=== PATIENT | female | born 1965 | race Caucasian/White ===

== ENCOUNTER 2018-04-02 14:02 | Outpatient (CLI) ==
[2014-11-24 11:05] VITALS: BMI 18.8
--- NOTE | 2018-04-02 15:17 | DI ---
EXAM: CHEST FRONTAL AND LATERAL VIEWS HISTORY: Chronic obstructive pulmonary disease. COMPARISON: 11/24/2014 FINDINGS: Heart size and mediastinal contour remain within normal limits. There is at least mild a therosclerotic disease. There is diffuse, chronic appearing interstitial accentuation. Lungs are hy perinflated and there is relative lucency of the lung zones consistent with pulmonary emphysema. No acute infiltrates are seen. No vascular congestion. There is no consolidation, visible pleural flui d or pneumothorax. Bones reveal no acute fracture. IMPRESSION: Chronic obstructive pulmonary disease is suspected. No acute cardiopulmonary process.
== END 2018-04-02 14:03 | disposition home or self-care (01) ==
LOC: RAD 14:02
PROVIDERS: ATTEND Physician Assistant
DX: J44.9 Chronic obstructive pulmonary disease, unspecified (principal)

== ENCOUNTER 2018-04-16 08:48 | Outpatient (CLI) ==
[2014-11-24 11:05] VITALS: BMI 18.8
== END 2018-04-16 08:49 | disposition home or self-care (01) ==
LOC: CAR 08:48
PROVIDERS: ATTEND Physician Assistant
DX: J44.9 Chronic obstructive pulmonary disease, unspecified (principal)

== ENCOUNTER 2018-09-02 10:55 | Emergency (ER) ==
[2018-09-02 11:00] VITALS: BP 125/77; TEMP 99.7; BMI 18.2
--- NOTE | 2018-09-02 12:04 | CT ---
EXAM: CT chest without contrast HISTORY: Blunt trauma right chest 1 week ago COMPARISON: None TECHNIQUE: CT chest performed without intravenous contrast. Coronal and sagittal reformatted images obtained. FINDINGS: Thyroid and thoracic inlet appear normal. Heart normal in size. No pericardial effusion. Aorta normal in caliber. Old. Esophagus. Mild atherosclerosis. Esophagus unremarkable. Evaluat ion for lymphadenopathy limited without contrast. No lymphadenopathy identified. Granulomatous calc ification. Patient status post cholecystectomy. No acute abnormalities of the bones. Central airwa y patent. Moderate centrilobular emphysema. Mild linear opacity right upper lobe, likely scarring. Mild right basilar consolidation with this region appearing somewhat nodular. IMPRESSION: 1. Mild right basilar consolidation could represent atelectasis and/or pneumonia. Small area of con tusion cannot be excluded in the setting of trauma. Region appears somewhat nodular and follow-up CT recommended 3 months for reevaluation. 2. Moderate centrilobular emphysema.
--- NOTE | 2018-09-02 12:19 | ED.PDOC ---
General ED Provider: Dr. CLAUDIA LUNDY Chief Complaint: Chest Wall Injury/Pain Stated Complaint: chest wall injury 1week ago Time Seen by Physician: 11:00 (NURSE PRESENT AT ALL TIMES ) Mode of Arrival: Walk-In Information Source: Patient Exam Limitations: No limitations Primary Care Provider: EDGAR CORONADO Nursing and Triage Documentation Reviewed and Agree: Yes Does patient meet sepsis criteria?: No System Inflammatory Response Syndrome: Not Applicable Sepsis Protocol: For patient's 13 years and over: Temp is 96.8 and below OR 101 and greater Pulse >90 BPM Resp >20/minute Acutely Altered Mental Status Are patient's symptoms suggestive of a new infection, such as: -Pneumonia -Skin, Soft Tissue -Endocarditis -UTI -Bone, Joint Infection -Implantable Device -Acute Abdominal Infection -Wound Infection -Meningitis -Blood Stream Catheter Infection -Unknown Trauma/Injury Complaint Exam - Trauma Complaint/Exam Location of Pain or Injury: Reports: Chest Onset/Duration: 7 days Symptoms Are: Still present Timing of Treatment: Immediate Initial Severity: Mild Current Severity: Mild Character: Reports: Aching Aggravating: Reports: Movement Alleviating: Reports: Rest Associated Signs and Symptoms: Denies: LOC, Confusion, Memory loss, Lethargy, Vomiting, Bleeding, Bruising, Swelling, Extremity disuse, Painful respiration, Hoarseness, Dysphagia, Hemoptysis, Significant blood loss Penetrating Injury Risk Factors: Reports: None Nexus Low Risk Criteria: No post-midline CS tender, No evidence of intoxicat., No Altered LOC, No focal neuro deficit, No distracting injuries Glascow Coma Scale (see protocol): 15 Skin Findings: Present: Normal findings Differential Diagnoses: Contusions, Sprain, Strain Review of Systems - Review Of Systems Constitutional: Reports: No symptoms Eyes: Reports: No symptoms Ears, Nose, Mouth, Throat: Reports: No symptoms Respiratory: Reports: No symptoms Cardiac: Reports: Chest pain (wall pain right sided ) GI: Reports: No symptoms : Reports: No symptoms Musculoskeletal: Reports: No symptoms Skin: Reports: No symptoms Neurological: Reports: No symptoms Endocrine: Reports: No symptoms Hematologic/Lymphatic: Reports: No symptoms All Other Systems: Reviewed and Negative Past Medical History - Past Medical History Previously Healthy: Yes Endocrine: Reports: None Cardiovascular: Reports: None Respiratory: Reports: COPD Hematological: Reports: None Gastrointestinal: Reports: None Genitourinary: Reports: None Neuro/Psych: Reports: None Musculoskeletal: Reports: None Cancer: Reports: None Last Menstrual Period: none - Surgical History General Surgical History: Reports: None - Family History Family History: Reports: None - Social History Smoking Status: Former smoker Hx Substance Use: No Alcohol Screening: None Physical Exam - Physical Exam Appearance: Well-appearing, No pain distress, Well-nourished Eyes: LEONOR, EOMI, Conjunctiva clear ENT: Ears normal, Nose normal, Oropharynx normal Respiratory: Airway patent, Breath sounds clear, Breath sounds equal, Respirations nonlabored Cardiovascular: RRR, Pulses normal, No rub, No murmur GI/: Soft, Nontender, No masses, Bowel sounds normal, No Organomegaly Musculoskeletal: Normal strength, ROM intact, No edema, No calf tenderness Skin: Warm, Dry, Normal color Neurological: Sensation intact, Motor intact, Reflexes intact, Cranial nerves intact, Alert, Oriented Psychiatric: Affect appropriate, Mood appropriate Interpretation - Radiology Interpretation Radiology Interpretation By: Radiologist Radiology Results: No acute changes (except for small area of contusion) Critical Care Note - Critical Care Note Total Time (mins): 0 Course - Course Orders, Labs, Meds: Orders Category Date Time Status CT CHEST W/O CONTRAST Stat RADS 09/02/18 11:12 Completed Vital Signs: Temp Pulse Resp BP Pulse Ox 09/02/18 10:55 99.7 F H 84 20 125/77 95 Departure - Departure Time of Disposition: 12:19 Disposition: HOME SELF-CARE Discharge Problem: Chest wall pain Chest wall contusion Qualifiers: Encounter type: sequela Laterality: right Qualified Code(s): S20.211S - Contusion of right front wall of thorax, sequela Instructions: Chest Wall Pain (ED) Condition: Good Pt referred to PMD for follow-up: Yes IPMP verified?: No Additional Instructions: Please call your Family Physician as soon as possible to schedule a follow-up appointment. THE RADIOLOGIST WANTS YOU TO HAVE A CAT SCAN OF THE CHEST IN 3 MOTHS MAKE SURE YOU DO. YOU DO NOT WANT OVERLOOK THIS ISSUE . Prescriptions: Hydrocodone/Acetaminophen [[place] 10-325 Tablet] 1 each PO Q8HR #10 tablet Allergies/Adverse Reactions: Allergies codeine Adverse Reaction (Verified 09/02/18 11:00) diazepam [From Valium] Adverse Reaction (Verified 09/02/18 11:00) hydrocodone Adverse Reaction (Verified 09/02/18 14:18) meperidine HCl [From Demerol] Adverse Reaction (Verified 09/02/18 11:00) morphine Adverse Reaction (Verified 09/02/18 11:00) oxycodone Adverse Reaction (Verified 09/02/18 14:18) Sulfa (Sulfonamide Antibiotics) Adverse Reaction (Verified 09/02/18 11:00) tetracycline Adverse Reaction (Verified 09/02/18 11:00) Home Medications: Ambulatory Orders Ropinirole HCl [Requip] 0.5 mg PO TID 11/24/14 Aclidinium [place] [Tudorza Pressair] 1 puff IH BID 09/02/18 Albuterol Sulfate [Ventolin Hfa] 2 puff IH Q4H PRN 09/02/18 Budesonide/Formoterol Fumarate [Symbicort 160-4.5 Mcg Inhaler] 2 puff IH BID 08/12 Gabapentin [Neurontin] 300 mg PO BID 09/02/18 Hydrocodone/Acetaminophen [[place] 10-325 Tablet] 1 each PO Q8HR #10 tablet Disposition Discussed With: Patient
== END 2018-09-02 12:36 | disposition home or self-care (01) ==
LOC: ED 10:55
DX: S20.211A Contusion of right front wall of thorax, initial encounter (principal); W22.8XXA Striking against or struck by other objects, initial encounter
CPT/HCPCS: 99283

== ENCOUNTER 2019-01-14 10:33 | Outpatient (CLI) ==
--- NOTE | 2019-01-14 12:01 | CT ---
EXAM: CT THORAX HISTORY: Previous abnormal CT, follow-up. Right basilar consolidation. Chronic obstructive pulmona ry disease. TECHNIQUE: CT thorax with intravenous contrast. Multiplanar images presented. 75 ml Omnipaque COMPARISON: 09/02/2018 FINDINGS: Normal heart size. No pericardial effusion. No evidence of mediastinal or hilar lymphadenopathy. Lungs are hyperinflated. There is evidence of apical emphysema. There is a lateral right apical jamaal llate opacity measuring approximately 9 mm which is unchanged. There is a thin, right basilar discoi d focus of opacity which is also grossly unchanged. No other pulmonary findings. Normal vascularity . No pleural fluid. The bones are within normal limits. IMPRESSION: There is a 9 mm stellate nodular focus in the lateral right apex which is stable. Ther e is a thin discoid focus of opacity in the right posterior lung base which is also stable. There is pulmonary emphysema. In this setting, a developing right upper lobe nodule cannot completely be exc luded and follow-up CT chest is recommended in 4-6 months. The basilar finding also be reevaluated a t this time.
== END 2019-01-14 10:34 | disposition home or self-care (01) ==
LOC: RAD 10:33
PROVIDERS: ATTEND Physician Assistant
DX: R93.89 Abnormal findings on diagnostic imaging of other specified body structures (principal)